=== PATIENT | male | born 1955 | race Caucasian/White ===

== ENCOUNTER → 2022-07-12 | Outpatient (CLI) | payer MEDICARE, OTHER, SELFPAY ==
[2022-07-12 13:21] LABS: Protein, Urine (Random) 25.1 mg/dL (<11.9); Protein:Creat Ratio 167 mg/g CRE (0-200)
[2022-07-12 13:26] LABS: Albumin, Serum 3.9 g/dL (3.2-5.0); BUN 24 mg/dL (7-18); BUN/Creat Ratio 16.8 RATIO (10-20); Calcium,Total 9.2 mg/dL (8.5-10.1); Chloride 107 mmol/L (98-107); Creatinine, Serum 1.43 mg/dL (0.70-1.30); EST Glomerular Filtration Rate 53 mL/min (>60); Est Glom Filt Rate - Afr Amer 64 mL/min (>60); Glucose 79 mg/dL (74-106); Phosphorus 2.7 mg/dL (2.5-4.9); Potassium 4.4 mmol/L (3.5-5.1); Sodium Level 140 mmol/L (136-145)
== END | disposition home or self-care (01) ==
PROVIDERS: PCP Family Medicine; Visit Provider Internal Medicine Nephrology
DX: N18.32 Chronic kidney disease, stage 3b (principal)
CPT/HCPCS: 36415; 80069; 82570; 84156

== ENCOUNTER → 2023-01-31 | Outpatient (CLI) | payer MEDICARE, OTHER, SELFPAY ==
[2023-01-31 10:43] LABS: Protein, Urine (Random) 18.6 mg/dL (<11.9); Protein:Creat Ratio 137 mg/g CRE (0-200)
[2023-01-31 11:01] LABS: Albumin, Serum 3.7 g/dL (3.2-5.0); BUN 20 mg/dL (7-18); BUN/Creat Ratio 13.8 RATIO (10-20); Calcium,Total 8.9 mg/dL (8.5-10.1); Chloride 108 mmol/L (98-107); Creatinine, Serum 1.45 mg/dL (0.70-1.30); EST Glomerular Filtration Rate 52 mL/min (>60); Est Glom Filt Rate - Afr Amer 63 mL/min (>60); Glucose 89 mg/dL (74-106); Phosphorus 2.5 mg/dL (2.5-4.9); Potassium 4.1 mmol/L (3.5-5.1); Sodium Level 139 mmol/L (136-145)
== END | disposition home or self-care (01) ==
LOC: LAB 09:35
PROVIDERS: PCP Family Medicine; Referring Provider Internal Medicine Nephrology; Visit Provider Internal Medicine Nephrology
DX: N18.32 Chronic kidney disease, stage 3b (principal)
CPT/HCPCS: 36415; 80069; 82570; 84156

== ENCOUNTER → 2023-04-09 | Outpatient (CLI) | payer MEDICARE, OTHER, SELFPAY ==
[2023-04-09 15:56] LABS: Absolute Lymphocyte Count 1.84 X10^3/uL (0.83-4.51); Absolute Neutrophil Count 4.5 X10^3/uL (2.0-7.7); Basophil# 0.04 X10^3/uL; Basophil% 0.5 % (0-1); Eosinophil# 0.27 X10^3/uL; Eosinophils% 3.7 % (0-5); Lymphocyte # 1.84 X10^3/ul (0.83-4.51); Lymphocyte % 25.1 % (19-41); Mean Corp Hgb Conc 31.8 g/dL (32-36); Mean Corpuscular Hgb 29.3 pg (27.0-32.0); Mean Corpuscular Volume 92.1 fL (80-94); Mean Platelet Vol. 10.3 fl (6.2-12.0); Monocyte# 0.62 X10^3/uL; Monocyte% 8.5 % (0-10); NRBC Flagged by Analyzer 0 % (0-5); Neutrophil # 4.53 X10^3/uL (2.7-7.7); Neutrophil % 61.9 % (47-70); Platelet Count 184 K/mm3 (150-450); RBC Distribution Width CV 13.2 % (11.6-14.6); RBC Distribution Width SD 44.9 fl (35.1-43.9); Red Blood Count 4.78 M/mm3 (4.6-6.2); White Blood Count 7.3 K/mm3 (4.4-11.0)
[2023-04-09 16:15] LABS: ALB/GLOB Ratio 1.1 RATIO (0.9-2.4); AST(SGOT) 21 U/L (15-37); Alanine Aminotransfer ALT/SGPT 21 U/L (16-61); Albumin, Serum 3.7 g/dL (3.2-5.0); Alkaline Phosphatase 82 U/L (45-117); Anion Gap 4 (5-15); BUN 24 mg/dL (7-18); BUN/Creat Ratio 17.3 RATIO (10-20); Calcium,Total 8.8 mg/dL (8.5-10.1); Chloride 109 mmol/L (98-107); Creatinine, Serum 1.39 mg/dL (0.70-1.30); EST Glomerular Filtration Rate 54 mL/min (>60); Est Glom Filt Rate - Afr Amer 66 mL/min (>60); Globulin 3.4 g/dL (2.2-4.2); Glucose 88 mg/dL (74-106); Potassium 4.2 mmol/L (3.5-5.1); Protein, Total 7.1 g/dL (6.4-8.2); Sodium Level 140 mmol/L (136-145); Thyroid Stim Hormone (TSH) 2.01 uIU/mL (0.358-3.74)
--- OUTSIDE RECORDS SUMMARY | 2023-04-09 16:39 | XMS RPT_ITS | CCD ---
Author Name Unknown Address [address] [place] [address] Organization [facility] Care Team Providers Care Entry Clerk Name Role Phone Luna Dominguez Unavailable Unavailable Unavailable Unavailable Luna Dominguez Primary Care Provider [phone] Unavailable Primary Care Provider Unavailmike e LUNA DOMINGUEZ Primary Care Unavailable CARON CURRAN Referring Unavailab CARON Richardson Admitting Unavailab Luna Avery Primary Care Provider LUNA DOMINGUEZ Primary Care Unavailable CARON CURRAN Admitting Unavailab CARON Richardson Attending Luna Aguilar MD Primary Care Provider CARON CURRAN Attending LUNA Aguilar Primary Care Unavailable DAVINA WILSON Attending Unavailable LUNA BUCHANAN Primary Care Unavailable DAVINA WILSON Admitting Unavailable DAVINA WILSON Referring Unavailable LUNA BUCHANAN Primary Care Unavailable Luna Buchanan Unavailable Dr. Luna Buchanan Primary Care UnavailDr. Luna Rogers Attending Clarka thomas Buchanan, Dr. Luna Chandra Referring Unavaila ble Medications Current Medications Medication Drug Class(es) Dates Sig (Normalized) Sig (Original) acetaminophen 325 mg / HYDROcodone bitartrate 5 mg oral tablet (2 sources) Opioid Agonist Start: 03-04-2020 End: 03-06-2020 take 1 tablet by mouth every four hours as needed HYDROcodone-aceta minophen (NORCO) 5-325 mg per tablet Indications: Trigger finger, left middle finger , Trigger little finger of right hand Take 1 (one) tablet by mouth every 4 (four) hours as needed . 8 tablet 0 03/04/2020 03/06/2020 Active Completed/Discontinued Medications Medication Drug Class(es) Dates Sig (Normalized) Sig (Original) calcium chloride 0.0014 meq/ml / potassium chloride 0.004 meq/ml / sodium chloride 0.103 meq/ml / sodium lactate 0.028 meq/ml injectable solution (2 sources) Start: 03-04-2020 End: 03-04-2020 take 100 mL intravenous route every hour 100 mL/hr, Intravenous, Continuous, Starting 03/04/20 at 1345, PACU (only) Problems Active Problems Problem Classification Problem Date Documented Date Episodic/Chronic Gout and other crystal arthropathies (1 source) Chondrocalcinosis of joint of left knee; Translations: [Other chondrocalcinosis, left knee] Chronic Osteoarthritis (1 source) Osteoarthritis of left knee joint; Translations: [Unilateral primary osteoarthritis, left knee] Chronic Other connective tissue disease (6 sources) Bilateral trigger fingers; Translations: [Trigger finger of both hands] Onset: 04-27-2016 04-27-2016 Other connective tissue disease (6 sources) Trigger finger of right hand; Translations: [Trigger finger of right hand, unspecified finger] Onset: 01-08-2020 01-08-2020 Other nervous system disorders (11 sources) Carpal tunnel syndrome, right upper limb; Translations: [Carpal tunnel syndrome, left upper limb] Onset: 04-27-2016 04-27-2016 Chronic Other nervous system disorders (3 sources) Carpal tunnel syndrome, left upper limb; Translations: [Carpal tunnel syndrome of left wrist] Onset: 04-27-2016 04-27-2016 Chronic Other screening for suspected conditions (not mental disorders or infectious disease) (2 sources) Abnormal results of kidney function studies; Translations: [Abnormal results of kidney function studies] Onset: 06-18-2022 Episodic Unclassified (6 sources) Carpal tunnel syndrome, right; Translations: [Carpal tunnel syndrome, right] Onset: 04-27-2016 04-27-2016 Unclassified (6 sources) Carpal tunnel syndrome, left; Translations: [Carpal tunnel syndrome, left] Onset: 04-27-2016 04-27-2016 Past or Other Problems Problem Classification Problem Date Documented Da te Episodic/Chronic Other connective tissue disease (8 sources) Trigger finger, unspecified finger; Translations: [Triggering of digit] Onset: 04-27-2016 04-27-2016 Episodic Other connective tissue disease (14 sources) Triggering of digit; Translations: [Trigger finger, left middle finger] Onset: 04-27-2016 12-18-2017 Episodic Other connective tissue disease (1 source) Trigger finger of right hand; Translations: [Trigger finger, unspecified finger] Onset: 01-08-2020 01-08-2020 Episodic Results Test Name Value Interpretation Reference Range Facil it Vital Signs Date Time Vital Sign Value Performing Clinician Facility 11-29-2020 08:55-0400 Body height 182.9 cm Davina Wilson [employer] Work Phone: [facility] 11-29-2020 08:55-0400 Body mass index (BMI) [Ratio] 27.94 kg/m2 Davina Wilson [employer] Work Phone: [facility] 11-29-2020 08:55-0400 Body weight 93.44 kg Davina Wilson [employer] Work Phone: [facility] 03-17-2020 08:43-0500 BMI (Body Mass Index) 27.4 kg/m2 Caron Curran [facility] 03-17-2020 08:43-0500 Body weight 91.63 kg Caron [facility] 03-17-2020 08:43-0500 Height 182.9 cm Caron Magdy [facility] 03-04-2020 13:12-0500 Body Temperature 97.81 [degF] Caron Curran [facility] 03-04-2020 13:12-0500 BP Diastolic 82 mm[Hg] Caronlora Curran [facility] 03-04-2020 13:12-0500 BP Systolic 123 mm[Hg] Caronlora Curran [facility] 03-04-2020 13:12-0500 Pulse (Heart Rate) 50 /min Caronlora Curran [facility] 03-04-2020 13:12-0500 Pulse Oximetry 99 % Caron Magdy [facility] 03-04-2020 13:12-0500 Respiratory Rate 16 /min Caronlora Curran [facility] 03-04-2020 08:50-0500 BMI (Body Mass Index) 27.48 kg/m2 Caron Curran [facility] 03-04-2020 08:50-0500 Body weight 91.9 kg Caronlora Curran [facility] 03-04-2020 08:50-0500 Height 182.9 cm Caronlora Curran [facility] 12-08-2018 15:15-0400 BMI (Body Mass Index) 28.48 kg/m2 Caron Curran [facility] 12-08-2018 15:15-0400 Body weight 95.25 kg Caronlora Curran [facility] 04-15-2017 14:52-0500 BMI (Body Mass Index) 28.48 kg/m2 Caron Curran [facility] Work Phone: 04-15-2017 14:52-0500 Height 182.9 cm Caron Curran [facility] Work Phone: 04-15-2017 14:52-0500 Weight 95.25 kg Caronlora Curran [facility] Work Phone: 12-10-2016 07:53-0400 BMI (Body Mass Index) 28.48 kg/m2 Caron Curran [facility] Work Phone: 12-10-2016 07:53-0400 Height 182.9 cm Caron Curran [facility] Work Phone: 12-10-2016 07:53-0400 Weight 95.25 kg Caron Curran [facility] Work Phone: 11-05-2016 15:23-0400 BMI (Body Mass Index) 28.48 kg/m2 Caron Curran [facility] Work Phone: 11-05-2016 15:23-0400 Height 182.9 cm Caron Curran [facility] Work Phone: 11-05-2016 15:23-0400 Weight 95.25 kg Caron Curran [facility] Work Phone: Encounters Encounter Date Encounter Type Care Provider Facility Start: 06-18-[address] Luna Buchanan Facility:[id number] Start: 04-25-2021 COLON, Provider: Yonatan Rust, Status: Pen, Time: 9:30 AM Luna Buchanan Work Phone: [facility] Work Phone: Start: 04-24-2021 Chart Update Luna noriega Work Phone: [facility] Work Phone: Start: 02-02-2021 Telephone encounter Luna Reyes Malcolm garcia Work Phone: [facility] Work Phone: Start: 11-29-2020 End: 12-03-2020 ambulatory DAVINA WILSON [facility] Start: 11-29-2020 End: 11-29-2020 Office outpatient visit 25 minutes Davina Wilson [employer] Work Phone: [facility] Procedures Date Procedure Procedure Detail Performing Clinician Start: 11-29-2020 Arthrocentesis aspir &/inj major jt/bursa w/o us Davina Wilson [employer] Work Phone: Plan of Treatment Date Care Activity Detail Author Start: 04-25-2021 COLON, Provider: Yonatan Rust, Status: Pen, Time: 9:30 AM COLON, Provider: Yonatan Rust, Status: Pen, Time: 9:30 AM [facility] Work Phone: Start: 11-30-2020 Influenza vaccination Sequential Influenza Vaccine (#1) [facility] Start: 12-01-2019 Influenza vaccination given [facility] Start: 11-30-2018 Influenza vaccination given SEQUENTIAL INFLUENZA VACCINE (#1) [facility] Start: 11-30-2017 Influenza vaccination given SEQUENTIAL INFLUENZA VACCINE (#1) [facility] Start: 2017 Zoster vacc, sc ZOSTER VACCINE [facility] Work Phone: Start: 12-10-2016 Ambulatory 12/10/2016 Office Visit Sports Medicine Caron Curran MD [address] [place], [place] [id number] [phone] [facility] Start: 11-30-2016 Influenza vaccination SEQUENTIAL INFLUENZA VACCINE (#1) [facility] Work Phone: Start: 11-30-2016 SEQUENTIAL INFLUENZA VACCINE (#1) SEQUENTIAL INFLUENZA VACCINE (#1) [facility] Work Phone: Start: 2007 Administration of herpes zoster vaccine ZOSTER VACCINES (1 of 2) [facility] Start: 2007 Screening for malignant neoplasm of colon [facility] Start: 1975 Hepatitis C antibody, confirmatory test Hepatitis C Screening [facility] Start: 1975 Hepatitis C screening Hepatitis C Screening [facility] Start: 1973 COVID-19 Vaccine (1 of 2) COVID-19 Vaccine (1 of 2) [facility] Start: 1972 HIV screening HIV Screening [facility] Start: 1969 Adolescent depression screening assessment Depression Screening (PHQ9) [facility] Start: 1969 Depression screening using PHQ-9 (Patient Health Questionnaire 9) score Depression Screening (PHQ9) [facility] Start: 1960 History and physical examination, annual for health maintenance Wellness Visit [facility] Start: 1957 Colonoscopy COLONOSCOPY [facility] Work Phone: Start: 1957 Colonoscopy COLONOSCOPY [facility] Work Phone: Start: 1957 Depression screening using PHQ-9 (Patient Health Questionnaire 9) score Depression Screening (PHQ9) [facility] Start: 1957 Hepatitis C antibody, confirmatory test HEPATITIS C SCREENING [facility] Start: 1957 HEPATITIS C SCREENING HEPATITIS C SCREENING [facility] Work Phone: Start: 1957 Prostate specific antigen measurement PSA Level [facility] Start: 1957 Protein mass conc COLONOSCOPY [facility] Start: 1957 Screening colonoscopy COLONOSCOPY [facility] Work Phone: Start: 1957 Screening for malignant neoplasm of colon Colorectal Cancer Screening: Colonoscopy [facility] Start: 1957 TETANUS EVERY 10 YR TETANUS EVERY 10 YR [facility] Work Phone: Start: 1957 Tetanus vaccination [facility] Payers Date Payer Category Payer Unknown [id number] 2015 Unknown [id number] 2. [id number] 1957 Unknown [id number] [id number]. [id number] 1957 Unknown [id number] [id number]. [id number] 1957 Unknown [id number] 2.16. [id number] 1957 Unknown [id number] 2.16. [id number] 1957 Unknown [id number] Medicare [id number] Unknown Self Pay Social History Date Type Detail Facility Start: 03-19-2016 End: 07-15-2017 Tobacco smoking status [facility] Never smoker [facility] Work Phone: Start: 1955 Sex Assigned At Not on file O [facility] Work Phone: Start: 12-08-2018 End: 11-30-2020 Alcohol intake Current drinker of alcohol (finding) [facility] Exposure to SARS-CoV -2 (event) Not sure [facility] Start: 03-19-2016 End: 03-04-2020 Tobacco use and exposure Never used [facility] Start: 11-30-2020 Alcohol intake [facility] History of Present illness Narrative 11-29-2020 Davina Wilson CNP - 11/29/2020 4:47 PM EDTCkaruna Wilson CNP - 11/29/2020 4:47 PM EDT Note Date & Type Note Facility 11-29-2020 History of Presen t illness Narrative Associated Order(s): LG Jt Injection/Arthrocentesis: L knee Post-Procedure Diagnose(s): Chondrocalcinosis of left knee; Primary osteoarthritis of left knee LG Jt Injection/Arthrocentesis: L knee Performed by: Davina Wilson CNP Authorized by: Davina Wilson CNP CPT 42456 - Large Joint Arthrocentesis: Consent given by: Patient Time out: Immediately prior to the procedure a time out was called Physician or proceduralist has discussed critical or nonroutine steps, procedure duration and anticipated blood loss: Yes Supporting Documentation: Indications: Pain and diagnostic evaluation Procedure Details: Location: Knee Site: L knee Prep: patient was prepped and draped in usual sterile fashion Needle size: 22 G Approach: Anterolateral Medications: 40 mg triamcinolone acetonide 40 mg/mL Anesthetic used: Lidocaine 1% Anesthetic amount (mL): 2 Patient tolerance: Patient tolerated the procedure well with no immediate complications Skyler Chanel 1955 CC: 65 y.o. is a he with left knee pain. Chief Complaint Patient presents with Left Knee - Pain . HPI: Knee Pain: Patient presents to the office with left knee pain. The pain started about a month ago without any known injury. The pain has continued even with taking ibuprofen which only seems to take the edge off. He does report that the knee feels as though it could give out on him but it hasn't . He denies any swelling in the knee, pain located all throughout the knee. He is very active and this is starting to inhibit his activity level. He has never had any injection nor any type of physical therapy for the knee. He did have a torn hamstring years ago and doesn't know if that has anything to do with the pain. PMH: No Known Allergies No current outpatient medications on file. History reviewed. No pertinent past medical history. Past Surgical History: Procedure Laterality Date ORTHOPEDIC SURGERY carpal tunnel b/l SHOULDER SURGERY TRIGGER FINGER RELEASE Bilateral 03/04/2020 Procedure: Bilateral hand trigger finger release 2nd, 3rd and 5th fingers on left hand 2nd, 4th and 5th right hand; Surgeon: Caron Curran MD; Location: Main OR; Service: Orthopedic Social History Socioeconomic History Marital status: Spouse name: Not on file Number of children: Not on file Years of education: Not on file Highest education level: Not on file Occupational History Not on file Tobacco Use Smoking status: Never Smoker Smokeless tobacco: Never Used Vaping Use Vaping Use: Never used Substance and Sexual Activity Alcohol use: Yes Alcohol/week: 1.0 standard drink Types: 1 Cans of beer per week Drug use: Never Sexual activity: Not on file Other Topics Concern Not on file Social History Narrative Not on file Social Determinants of Health Financial Resource Strain: Difficulty of Paying Living Expenses: Not on file Food Insecurity: Worried About Running Out of Food in the Last Year: Not on file Ran Out of Food in the Last Year: Not on file Transportation Needs: Lack of Transportation (Medical): Not on file Lack of Transportation (Non-Medical): Not on file Physical Activity: Days of Exercise per Week: Not on file Minutes of Exercise per Session: Not on file Stress: Feeling of Stress : Not on file Social Connections: Frequency of Communication with Friends and Family: Not on file Frequency of Social Gatherings with Friends and Family: Not on file Attends Confucianism Services: Not on file Active Member of Clubs or Organizations: Not on file Attends Club or Organization Meetings: Not on file Marital Status: Not on file Housing Stability: Unable to Pay for Housing in the Last Year: Not on file Number of Places Lived in the Last Year: Not on file Unstable Housing in the Last Year: Not on file The patient's past medical history, surgical history, social history, family history, medications and allergies were reviewed with the patient today and are available in the chart for further review. ROS: Review of Systems Constitutional: Negative for activity change and fatigue. HENT: Negative for congestion, hearing loss and trouble swallowing. Eyes: Negative for visual disturbance. Respiratory: Negative for chest tightness and shortness of breath. Cardiovascular: Negative for chest pain and palpitations. Gastrointestinal: Negative for abdominal pain, diarrhea, nausea and vomiting. Endocrine: Negative for polydipsia, polyphagia and polyuria. Genitourinary: Negative for decreased urine volume, difficulty urinating and hematuria. Musculoskeletal: Positive for arthralgias. Negative for joint swelling and myalgias. Skin: Negative for color change, rash and wound. Allergic/Immunologic: Negative for immunocompromised state. Neurological: Negative for dizziness, weakness, light-headedness and numbness. Hematological: Does not bruise/bleed easily. Psychiatric/Behavioral: Negative for confusion and sleep disturbance. The patient is not nervous/anxious. PE: Physical Exam Constitutional: Appearance: He is well-developed. HENT: Head: Normocephalic. Eyes: Pupils: Pupils are equal, round, and reactive to light. Cardiovascular: Rate and Rhythm: Normal rate and regular rhythm. Pulmonary: Effort: Pulmonary effort is normal. Breath sounds: Normal breath sounds. Abdominal: General: Bowel sounds are normal. Palpations: Abdomen is soft. Musculoskeletal: General: Tenderness present. Normal range of motion. Cervical back: Normal range of motion and neck supple. Left knee: No effusion. Instability Tests: Medial Samantha test negative and lateral Samantha test negative. Skin: General: Skin is warm and dry. Neurological: Mental Status: He is alert and oriented to person, place, and time. ORTHO: Left Knee Exam Tenderness The patient is experiencing tenderness in the lateral joint line. Range of Motion The patient has normal left knee ROM. Tests Samantha: Medial - negative Lateral - negative Varus: negative Valgus: negative Ronna: Anterior - negative Drawer: Anterior - negative Posterior - negative Other Erythema: absent Sensation: normal Pulse: present Swelling: mild Effusion: no effusion present Imaging: L Knee Degenerative changes without acute osseous abnormality Assessment/Plan: After exam and reviewing of the patient x-ray images, I offered him a cortisone injection which he gladly accepted. I did this without complications and he tolerated this well. IF there is no improvement after 2 weeks, I will start him in outpatient physical therapy. Otherwise I will see him as needed. Diagnosis: Problem List Items Addressed This Visit None Follow Up: No follow-ups on file. Davina Wilson CNP documented in this encounter [facility] Evaluation note Note Date & Type Note Facility documented in this encounter [facility] Assessments Diagnosis Bilateral hand pain - Primar y Trigger finger of right hand , unspecified finger Diagnosis Tear of left hamstring, subs equent encounter - Primary Diagnosis Left leg pain - Primary Pain in soft tissues of limb Tear of left hamstring, init ial encounter Diagnosis Tear of left hamstring, subs equent encounter - Primary Diagnosis Trigger finger of right hand, unspecified finger- Primary Trigger finger, left middle finger Trigger finger of both hands Diagnosis Trigger finger of both hands - Primary Carpal tunnel syndrome, righ t Carpal tunnel syndrome Carpal tunnel syndrome, left Diagnosis Trigger finger of both hands- Primary Diagnosis Trigger finger of right hand, unspecified finger Trigger finger, left middle finger Diagnosis Trigger finger, left middle finger- Primary Trigger little finger of right hand Trigger finger of right hand Diagnosis Trigger finger of right hand, unspecified finger- Primary Trigger finger, left middle finger History of Present Illness * Caron Curran MD - 04/28/2018 6:02 PM EST Dictation on: 04/28/2018 6:03 PM by: CARON CURRAN [[email or web address]] in this encounter* Caron Curran MD - 04/28/2018 6:02 PM EST Dictation on: 04/28/2018 6:03 PM by: CARON CURRAN [[email or web address]] in this encounter* Caron Curran MD - 11/05/2016 5:54 PM EDT Skyler Derr comes in today for evaluation of both hands. This gentleman I have done previous carpal tunnel release and previous trigger finger says now his right thumb and his left 3rd finger are sticking. Today, he is awake, alert and oriented x3. Has tenderness on the right thumb A1 mariam with triggering. He has tenderness over the left 3rd finger A1 mariam with triggering. His left 4th finger woundis healed. His carpal tunnel wounds bilaterally are healed. IMPRESSION 1.Right thumb trigger digit. 2.Left 3rd finger trigger digit. PLAN Today, under sterile conditions with patient's consent, we injected 20 mg of Kenalog and 2.5 mL of 1% lidocaine without epinephrine into the left 3rd finger and the right thumb A1 mariam. Patient tolerated both procedures well. If these measures fail, we will consider surgical intervention. in this encounter* Caron Curran MD - 12/08/2018 3:35 PM ELE Charles is here for followup of his left and right hand trigger fingers. He has had previous trigger finger releases. He just wants shots today. Today, he is awake, alert, and oriented x3. He ambulates without assistive device. On his left hand, he has tenderness the left 2nd and 3rd finger A1 mariam with obvious triggering. On the right hand, he has tenderness and triggering on the right hand 1st, 4th, and 5th A1 pulleys. IMPRESSION 1.Left hand 2nd and 3rd finger trigger digit. 2.Right hand 1st, 4th, and 5th trigger digit. PLAN At this point in time, he wants to go ahead and get all trigger digits injected today. I have informed him of the risks and complications of cortisone. He understands that, he has had them before. Hesaid he does not want to make another appointment. He is contemplating surgery in the wintertime. Under sterile conditions with patient's consent, we injected 20 mg of Kenalog 2.5 cc of 1% lidocaine without epinephrine to the left 2nd and 3rd finger A1 mariam and the right 1st, 4th, and 5th finger A1 mariam. Patient tolerated all 5 injections well. I will see him back on a p.r.n. basis. documented in this encounter* Caron Curran MD - 09/04/2019 4:12 PM EDT Dictation on: 09/04/2019 4:13 PM by: CARON CURRAN [[email or web address]] documented in this encounter* Caron Curran MD - 03/17/2020 4:31 PM EST Dictation on: 03/17/2020 4:31 PM by: CARON CURRAN [[email or web address]] documented in this encounter Advance Directives No Advanced Directives Records FoundDocuments on File Type Date Recorded Patient Housing Quality Standard Inspector Expl anation Advance Directives and Living Will Documents on File Type Date Recorded Patient Housing Quality Standard Inspector Expl anation Advance Directives and Livin g Will 03/04/2020 8:25 AM Documents on File Type Date Recorded Patient Housing Quality Standard Inspector Expl anation Advance Directives and Livin g Will 03/04/2020 8:25 AM Summary Purpose Family History No Family History Records FoundNo Family History Records FoundNo Family History Records FoundNo Family History Records FoundNo Family History Records Found Discharge Instructions * Instructions* Irma Garland RN - 03/04/2020 Trigger Finger Release: What to Expect at Home Your Recovery Your finger and hand may be sore and swollen for several days. It may be hard to move your finger at first. This usually gets better after several weeks. You may feel numbness or tingling near the cut, called an incision, that the doctor made. This feeling will probably get better in a few days, but it may take several months to completely go away. Your doctor will take out your stitches 1 to 2 weeks after surgery. It will probably take about 6 weeks for your finger to heal completely. Once healed, your finger may move easily without pain. How soon you can return to work depends on your job. If you can do your job without using the hand,you may be able to go back 1 or 2 days after surgery. But if your job requires you to do repeated finger movements, put pressure on your hand, or lift things, you may need to take up to 6 weeks off work. Your doctor can help you decide how much time you will need to take off work. This care sheet gives you a general idea about how long it will take for you to recover. But each person recovers at a different pace. Follow the steps below to get better as quickly as possible. How can you care for yourself at home? Activity Rest when you feel tired. Getting enough sleep will help you recover. Try to walk each day. Start by walking a little more than you did the day before. Bit by bit, increase the amount you walk. For 1 to 2 weeks after surgery, avoid using your hand. This includes lifting things heavier than 1 to 2 pounds or doing repeated finger or hand movements, such as typing, using a computer mouse, washing windows, vacuuming, or chopping food. Do not use power tools, and avoid other activities that make your hand vibrate. Ask your doctor when you can drive again. You may be able to go back to work 1 or 2 days after surgery. It depends on the type of work you doand how you feel. You may shower, but do not get your hand wet until your doctor says it is okay. Keep the bandage dry by covering it with plastic. Do not take a bath, swim, use a hot tub, or soak your hand until yourdoctor says it is okay. Diet You can eat your normal diet. If your stomach is upset, try bland, low-fat foods like plain rice, broiled chicken, toast, and yogurt. Medicines Your doctor will tell you if and when you can restart your medicines. He or she will also give you instructions about taking any new medicines. If you take aspirin or some other blood thinner, ask your doctor if and when to start taking it again. Make sure that you understand exactly what your doctor wants you to do. Take pain medicines exactly as directed. ? If the doctor gave you a prescription medicine for pain, take it as prescribed. ? If you are not taking a prescription pain medicine, ask your doctor if you can take an yvjs-azv-npyvoxa medicine. If you think your pain medicine is making you sick to your stomach: ? Take your medicine after meals (unless your doctor has told you not to). ? Ask your doctor for a different pain medicine. If your doctor prescribed antibiotics, take them as directed. Do not stop taking them just because you feel better. You need to take the full course of antibiotics. Incision care Leave the bandage on your hand until the doctor says it is okay to remove it. This is usually 2 or 3 days after surgery. After the doctor says you can take off your bandage, wash the area daily with warm, soapy water andpat it dry. Don't use hydrogen peroxide or alcohol, which can slow healing. You may cover the area with a gauze bandage if it weeps or rubs against clothing. Change the bandage every day. Keep the area clean and dry. Exercise Gently bend and straighten your fingers throughout the day to keep them flexible and help reduce swelling. You may need finger and hand therapy. This helps you regain range of motion, strength, and supervisor fabrication and assembly in your finger and hand. To get the best results, you need to do the exercises correctly and as often and as long as your doctor or your physical or occupational therapist tells you to. Ice and elevation Put ice or a cold pack on your hand and wrist for 10 to 20 minutes at a time. Try to do this every 1 to 2 hours for the next 3 days (when you are awake) or until the swelling goes down. Put a thin cloth between the ice and your skin. Prop up your hand on a pillow anytime you sit or lie down during the first 2 or 3 days after surgery. Try to keep the hand above the level of your heart. This will help reduce swelling. Follow-up care is a padron part of your treatment and safety. Be sure to make and go to all appointments, and call your doctor if you are having problems. It's also a good idea to know your test resultsand keep a list of the medicines you take. When should you call for help? Call 911 anytime you think you may need emergency care. For example, call if: You passed out (lost consciousness). You have severe trouble breathing. You have sudden chest pain and shortness of breath, or you cough up blood. Call your doctor now or seek immediate medical care if: You have pain that does not get better after you take pain medicine. You have loose stitches, or your incision comes open. Your incision bleeds through a large bandage. You have signs of infection, such as: ? Increased pain, swelling, warmth, or redness. ? Red streaks leading from the incision. ? Pus draining from the incision. ? Swollen lymph nodes in your neck, armpits, or groin. ? A fever. Your hand or fingers are cool or pale or change color. You have tingling or numbness in your hand or fingers. You cannot move your fingers. Watch closely for any changes in your health, and be sure to contact your doctor if: You are not getting better as expected. Where can you learn more? Log into your personal health record on [email or web address].[email or web address] and enter F681 in the Education box to learn more about Trigger Finger Release: What to Expect at Home. Current as of: June 01, 2019 Content Version: 12.6 [employer]. Care instructions adapted under license by your healthcare professional. If you have questions about a medical condition or this instruction, always ask your healthcare professional. [employer] disclaims any warranty or liability for your use of this information. GENERAL POST-OPERATIVE PATIENT INSTRUCTIONS ANESTHESIA PRECAUTIONS: A responsible adult must stay with you for at least 24 hours after surgery. You may feel light headed,, dizzy, or nauseated during this time. Do not operate a vehicle (car, bike, motorcycle, technology assistant) machinery or power tools. Do not make any important decisions or drink any alcoholic beverages for 24 hours. Children should remain quiet today. No riding of bicycles, motorcycles, skateboards, playing on swings etc. Drink plenty of fluids today. Eat light, small, frequent meals today. Resume regular diet tomorrow. FOLLOW-UP: Please make an appointment with your physician for follow-up. Call your physician immediately if you have any fevers greater than 101, drainage from your wound that is not clear or looks infected, persistent bleeding, increasing abdominal pain, problems urinating, or persistent nausea/vomiting. DIET: You may eat any foods that you can tolerate. It is a good idea to eat a high fiber diet and take in plenty of fluids to prevent constipation. If you do become constipated you may want to take amild laxative or take ducolax tablets on a daily basis until your bowel habits are regular. Constipation can be very uncomfortable, along with straining, after recent surgery. ACTIVITY: You are encouraged to cough and deep breathe or use your incentive spirometer if you weregiven one, every 15-30 minutes when awake. This will help prevent respiratory complications and lowgrade fevers post-operatively if you had a general anesthetic. You are encouraged to walk and engage in light activity for the next two weeks. MEDICATIONS: Try to take narcotic medications and anti-inflammatory medications, such as ibuprofen,naprosyn, etc., with food. This will minimize stomach upset from the medication. Should you developnausea and vomiting from the pain medication, or develop a rash, please discontinue the medication and contact your physician. You should not drive, make important decisions, or operate machinery when taking narcotic pain medication. Do not take tylenol or tylenol products with narcotic medications. QUESTIONS: Please feel free to call your physician or the hospital telephone operator if you have any questions, and they will be glad to assist you.Prescriptions given to patient along with copy of discharge instructions.Discharge instructions reviewed with patient and family/friend, all questions answered,verbalized understanding.Including but not limited to signs and symptoms of infection; fever over 100, redness at the incision site, foul smelling drainage around the incisional site, and increased, unrelenting Pain. Call 911 instructions also reviewed and highlighted on instruction sheet. Patient states that they have the means to obtain supplies to care for self at home. documented in this encounter Additional Source Comments Reason for Visit (unrecogniz ed section and content) Reason Comments Follow-up Pain Reason Comments Pain Follow-up Status Reason Specialty Diagnoses / Procedures Referre d By Contact Referred To Contact Diagnoses Trigger finger of right hand, unspecified finger Trigger finger, left middle finger Trigger finger of right hand, unspecified finger [M65.30] Trigger finger, left middle finger [M65.332] Procedures ID INCISE FINGER TENDON SHEATH Caron Curran MD [address] [place] [id number] Reason Comments Post-op Follow-up Reason Comments Pain (unrecognized sect ion and content) No Status Records FoundNo Status Records FoundNo Status Records FoundNo Status Records FoundNo Status Records Found INFORMATION SOURCE (unrecogn ized section and content) DATE CREATED AUTHOR AUTHOR'S ORGANIZ ATION 03/13/2020 [facility] DATE CREATED AUTHOR AUTHOR'S ORGANIZ ATION 12/04/2020 [facility] DATE CREATED AUTHOR AUTHOR'S ORGANIZ ATION 04/23/2021 [facility] DATE CREATED AUTHOR AUTHOR'S ORGANIZ ATION 06/24/2022 [facility] Caron Curran MD - 03/04/2020 10:02 AM EST H&P Notes (unrecognized sect ion and content) Dictation on: 03/04/2020 10:08 AM by: CARON CURRAN [[id number]] documented in this encounter Brief Op Note - Caron Curran MD - 03/04/2020 12:07 PM ESTOp Note - Caron Curran MD - 03/04/2020 11:30 AM EST Miscellaneous Notes (unrecog nized section and content) Brief Post Operative Note Patient Name: Skyler Chanel : 1955 (64 y.o.) Date of Service: 03/04/2020 CSN: [id number] Procedure(s): Bilateral hand trigger finger release 2nd, 3rd and 5th fingers on left hand 2nd, 4th and 5th right hand Pre-Operative Diagnoses: * Trigger finger of right hand, unspecified finger [M65.30] Trigger finger, left middle finger [M65.332] Post-Operative Diagnoses: * Same as Pre-Op Diagnosis * Trigger finger of right hand, unspecified finger [M65.30] * Trigger finger, left middle finger [M65.332] Surgeon(s) and Role: * Caron Curran MD - Primary Anesthesiologist: Luna Barber MD; Emiliano Pop MD FIRE HYDRANT MECHANIC: Joanna Davis CRNA; Diann Rodriguez CRNA Fleecer: Alanis Cruz RN; Molly Farrell RN Scrub Person: ST Guido Operative findings: see op note Intra and immediate post-operative complications: none Type of anesthesia used: Monitor Anesthesia Care Estimated blood loss: 2 mL Estimated urine output: Refer to surgical log Specimen(s): * No specimens in log * Implant(s): * No implants in log * Drain(s): * No LDAs found * Wound(s): Wound 03/04/20 Surgical Wound Hand (Active) Caron Curran MD 03/04/2020 12:07 PM Dictation on: 03/04/2020 12:10 PM by: CARON CURRAN [[id number]] documented in this encounter Care Teams (unrecognized sec tion and content) FOR RECORDS PERTAINING TO PATIENTS WHO ARE OR HAVE BEEN ENROLLED IN A CHEMICAL DEPENDENCY/SUBSTANCEABUSE PROGRAM, SOME INFORMATION MAY BE OMITTED. This clinical summary was aggregated from multiple sources. Caution should be exercised in using it in the provision of clinical care. This summary normalizes information from multiple sources, and as a consequence, information in this document may materially change the coding, format and clinical context of patient data. In addition, data may be omitted in some cases. CLINICAL DECISIONS SHOULD BE BASED ON THE PRIMARY CLINICAL RECORDS. [employer] provides no warranty or guarantee of the accuracy or completeness of information in this document.
[2023-04-09 16:47] LABS: Hepatitis C Antibody Non-Reactive (Nonreactive); Vitamin D,25 Hydroxy 40.9 ng/mL
== END | disposition home or self-care (01) ==
PROVIDERS: PCP Family Medicine; Visit Provider Family Medicine Geriatric Medicine
DX: Z12.5 Encounter for screening for malignant neoplasm of prostate (principal); Z13.89 Encounter for screening for other disorder; I10 Essential (primary) hypertension; E55.9 Vitamin D deficiency, unspecified
CPT/HCPCS: 36415; 80053; 82306; 84153; 84443; 85025; 86803; G0103

== ENCOUNTER → 2023-04-17 | Outpatient (CLI) | payer MEDICARE, OTHER, SELFPAY ==
--- NOTE | 2023-04-17 07:59 | AAAS_ITS ---
Reason For Study: SCREENING Aorta Measurements Aorta Doppler Measurements Proximal aorta measures2.23 x 2.23cm. in cross- Peak systolic flow velocities within the proximal sectional axis. aorta measure 124.9 cm/sec. Proximal aorta measures2.31cm. in longitudinal Peak systolic flow velocities within the mid aorta axis. measure 85.0 cm/sec. Mid aorta measures2.02 x 1.92cm. in cross- Peak systolic flow velocities within the distal sectional axis. aorta measure 85.0 cm/sec. Mid aorta measures1.93cm. in longitudinal axis. Distal aorta measures2.31 x 2.21cm. in cross- sectional axis. Distal aorta measures1.86cm. in longitudinal axis. Left Iliac Artery Left iliac artery measures 0.96 x 0.81 cm. in the cross-sectional axis. Left iliac artery measures 0.88 cm. in the longitudinal axis. Peak systolic velocity in the left iliac artery measures 74.8 cm/sec. Right Iliac Artery Right iliac artery measures 1.08 x 1.07 cm. in the cross-sectional axis. Right iliac artery measures 1.06 cm. in the longitudinal axis. Peak systolic velocity in the right iliac artery measures 76.8 cm/sec. Procedure Aorta IVC Iliac vasculature or bypass grafts [id number]. Exam performed in department. VL/AAA Screening Interpretation Summary Aorta patent, normal caliber Bilateral iliac arteries patent, normal caliber Ordering Physician: Tuan Camarillo Chi Referring Physician: Tuan Camarillo Chi Performed By: Soledad Cameron, RDCS, RVT
== END | disposition home or self-care (01) ==
LOC: CVS 07:57
PROVIDERS: PCP Family Medicine Geriatric Medicine; Visit Provider Family Medicine Geriatric Medicine
DX: Z13.89 Encounter for screening for other disorder (principal)
CPT/HCPCS: 76706

== ENCOUNTER → 2023-11-05 | Outpatient (CLI) | payer MEDICARE, OTHER, SELFPAY ==
[2023-11-05 16:59] LABS: Hematocrit 43.3 % (40-54); Hemoglobin 13.8 g/dL (13.0-16.5); Mean Corp Hgb Conc 31.9 g/dL (32-36); Mean Corpuscular Hgb 29.2 pg (27.0-32.0); Mean Corpuscular Volume 91.7 fL (80-94); Mean Platelet Vol. 10.4 fl (6.2-12.0); Platelet Count 168 K/mm3 (150-450); RBC Distribution Width CV 13.1 % (11.6-14.6); RBC Distribution Width SD 44.3 fl (35.1-43.9); Red Blood Count 4.72 M/mm3 (4.6-6.2); White Blood Count 7.3 K/mm3 (4.4-11.0)
[2023-11-05 18:04] LABS: Albumin, Serum 3.7 g/dL (3.2-5.0); BUN 24 mg/dL (7-18); BUN/Creat Ratio 15.2 RATIO (10-20); Chloride 107 mmol/L (98-107); Creatinine, Serum 1.58 mg/dL (0.70-1.30); EST Glomerular Filtration Rate 47 mL/min (>60); Est Glom Filt Rate - Afr Amer 57 mL/min (>60); Glucose 84 mg/dL (74-106); Phosphorus 3.8 mg/dL (2.5-4.9); Potassium 4.7 mmol/L (3.5-5.1); Sodium Level 138 mmol/L (136-145)
== END | disposition home or self-care (01) ==
LOC: LAB 16:02 → POLAB3 16:34
PROVIDERS: PCP Family Medicine; Referring Provider Internal Medicine Nephrology; Visit Provider Internal Medicine Nephrology
DX: N18.31 Chronic kidney disease, stage 3a (principal)
CPT/HCPCS: 36415; 80069; 85027

== ENCOUNTER → 2023-12-25 | Outpatient (CLI) | payer MEDICARE, OTHER, SELFPAY ==
--- NOTE | 2023-12-25 15:06 | RAD_ITS ---
STUDY: X-RAY - PELVIS REASON FOR EXAM: Male, 68 years old. Left buttocks pain. TECHNIQUE: One view of the pelvis was obtained. COMPARISON: None. FINDINGS: Normal bowel gas pattern with air seen to the rectum. Moderate amount of feces colon Osteopenia. Mild arthrosis of both sacroiliac joints. Mild arthrosis of the symphysis pubis. Mild arthrosis of both hips. Calcification projected lateral to the right femoral head which may represent a small intra-articular osteochondral body. Vasectomy clips. 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 Probable intra-articular osteochondral bodies in the right hip joint. No acute finding. Electronically Signed: Alin Lui MD at 15:27 EDT ,
== END | disposition home or self-care (01) ==
LOC: RAD 15:03
PROVIDERS: PCP Family Medicine; Referring Provider Anesthesiology; Visit Provider Anesthesiology
DX: M54.50 Low back pain, unspecified (principal)
CPT/HCPCS: 72170

== ENCOUNTER → 2024-04-20 | Outpatient (CLI) | payer MEDICARE, OTHER, SELFPAY ==
[2024-04-20 17:37] LABS: Color, Urine Yellow (Yellow); Glucose, Dipstick Normal (Normal); Ketone-Dipstick Negative (Negative); Leukocyte Esterase-Dipstick Negative /ul (Negative); Nitrite-Dipstick Negative (Negative); Occult Blood-Urine Negative /ul (Negative); Protein-Dipstick 30 mg/dl (Negative); Urine Bilirubin Dipstick Negative (Negative); Urine Clarity Clear (Clear); Urine Urobilinogen Normal (Normal)
== END | disposition home or self-care (01) ==
LOC: LABSPEC 14:45
PROVIDERS: PCP Family Medicine; Visit Provider Family Medicine
DX: N41.0 Acute prostatitis (principal)
CPT/HCPCS: 81002; 87086

== ENCOUNTER 2024-04-30 09:09 | Emergency (ER) | payer MEDICARE, OTHER, SELFPAY ==
[2024-04-30 09:10] VITALS: BP 161/81; PULSE 77; RESP 16; TEMP 36.4; O2SAT 98; BMI 27.8
[2024-04-30 09:38] LABS: Mucous, Urine 0 SEEN /hpf (<or=2+); Red Blood Cells-Urine 0 SEEN /hpf (0-5); White Blood Cells 0 SEEN /hpf (0-5)
--- NOTE | 2024-04-30 09:38 | EX.ED.GUMALE ---
HPI History of Present Illness Chief Complaint: Complaint Informant: patient and spouse/S.O. Pain Onset: Weeks Context: Gradual Onset Timing: Intermittent Current Severity: Mild Maximum Severity: Mild Narrative Narrative: 69-year-old male past medical history of renal sufficiency. On the 12th saw his primary care physician told him he was having trouble urinating. They started him on antibiotics Cipro. Did not make a big difference. Recently was started on Bactrim and Flomax and a CT is able to pee but he has not mild discomfort when he pees. He denies any cloudy or bloody urine. He believes he has a history of enlarged prostate but is never had surgery for it. He says he has difficulty initiating a stream. No fever. Suprapubic discomfort. Prior similar symptoms: Yes Recent Illness/Hospitalization: No PFSH PFSH Home Medications ?Medication ?Instructions ?Recorded ?Last Taken ?Type sulfamethoxazole 800 1 tab PO BID 04/30/24 Unknown History mg-trimethoprim 160 mg tablet tamsulosin 0.4 mg capsule 0.4 mg PO QPM 04/30/24 Unknown History tamsulosin 0.4 mg capsule (Flomax) 0.4 mg PO DAILY 30 days #30 caps 04/30/24 Unknown Rx Allergy/AdvReac Type Severity Reaction Status Date / Time No Known Allergies Allergy Verified 04/30/24 09:10 Surgical History (Updated 04/30/24 @ 10:47 by Erica Tapia) S/P urethral surgery Social History Smoking Status: Never smoker ROS ROS ED ROS Narrative Dysuria. Difficulty urinating stream. Frequent urination. Constitutional Constitutional ED: Denies fever(s) Eyes Eyes: Denies blurry vision ENT ENT ED: Denies ear pain Cardiovascular Cardiovascular: Denies chest pain Respiratory/Chest Respiratory/Chest: Denies cough or dyspnea Gastrointestinal Gastrointestinal: Reports other Details: Feels full of her suprapubic region. ; Denies abdominal pain, constipation, diarrhea, nausea or vomiting Genitourinary Genitourinary ED: Reports dysuria and urinary frequency; Denies hematuria Musculoskeletal Musculoskeletal: Denies arthralgias Integumentary Denies abscess Neurologic Neurologic: Denies headache(s) Psychiatric Psychiatric: Denies anxiety or depression Endocrine Endocrinology: Denies polydipsia Hematologic/Lymphatic Hematologic/Lymphatic: Denies easy bleeding Allergic/Immunologic Allergic/Immunologic ED: Denies mouth swelling, tongue swelling or urticaria EXAM Physical Exam Narrative Exam Narrative: 69-year-old male. Vital signs stable afebrile. H EENT exam pupils round react light. Mytrex membranes. Neck nontender no JVD. Lungs clear to auscultation bilaterally. Heart regular rate and rhythm rate about 75 no murmur. Chest wall ribs nontender. Abdomen soft nondistended normal bowel sounds without peritoneal signs. Mild suprapubic tenderness only. No tenderness over the right upper or lower quadrant. No obstruction. No pulsatile mass. External exam unremarkable. Nontender. Circumcised male. No discharge or blood. No swelling. Moving all 4 extremities. Nontender no edema. Back nontender. Neurologically is awake and alert no focal motor deficits. Const Vital Signs: 04/30/24 09:10 04/30/24 11:46 Temperature 97.5 F L Temperature Source Temporal Pulse Rate 77 Respiratory Rate 16 Blood Pressure 161/81 H 125/100 H Blood Pressure Mean 107 108 Pulse Ox 98 Oxygen Delivery Method Room Air Positive well nourished and well developed; Negative for cachectic or contractures General Appearance ED: well developed and NAD; Negative for cachectic, contractures or pallor Nutritional Appearance: Negative for cachectic HEENT Reports moist mucous membranes normocephalic and atraumatic Eyes PERRL and EOMs intact bilaterally Neck no lymphadenopathy, supple and no JVD Resp normal respiratory effort and clear to auscultation bilaterally Cardio regular rate, regular rhythm, S1 normal heart sound, S2 normal heart sound and no murmurs GI non-distended and no masses; Negative for non-tender GI Narrative: Mild suprapubic tenderness. Palpation: soft and tender; Negative for guarding, hepatomegaly or splenomegaly no CVA tenderness Back/Spine no CVA tenderness General Back: Negative for CVA tenderness Cervical Spine: Negative for cervical spine tenderness Thoracic Spine / Upper Back: Negative for thoracic spinal tenderness Lumbar Spine / Lower Back: Negative for lumbar spinal tenderness Extremity normal to inspection General Extremety ED: Negative for edema, pulses abnormal or tenderness General Extremity: Negative for edema or pulses abnormal Neuro oriented x3, CN's II-XII intact bilaterally and moves all extremities Sensorium / Orientation: alert, oriented to person, oriented to place and oriented to time; Negative for orientation impaired, confused or lethargic Motor Exam: strength 5/5 throughout Psych mental status grossly normal Attitude: No agitated Mood & Affect: Negative for depressed, anxious or tearful Thought Process: normal thought process Skin General Skin Exam: Negative for jaundice or pallor Lesions: no lesions Rashes: no rashes Trauma: Negative for abrasion, laceration or puncture MDM MDM MDM Narrative Medical decision making narrative: C9-year-old male with trouble initiating stream and urinary frequency. Recently has been on Cipro now on Bactrim and Flomax. Looking at his urine sample does not look infected. There is no gross blood or clots. He describes urinary retention and thinks he has enlarged prostate. The bladder scan was only 62 but it may be inaccurate. Organ to check his kidney function. A UA and place a Sampson catheter to see if he does or does not have urinary retention. Repeat exam at 12:13 PM patient doing well. Sampson has 700 cc of clear yellow urine in it. No blood or clots. I believe the patient's issue is urinary retention most likely from enlarged prostate. He is almost out of Flomax. To be written for Flomax to take at night before he goes to bed. He can stop the antibiotic. We discharged to home with the Sampson catheter in place. He will follow-up outpatient with Dr. Harjinder Ferrer of urology. History & Record Review Discussion w/independent historian: Family Additional record(s) reviewed:: Prior inpatient record, Prior outpatient record, Prior ED visit and Prior labs Lab Data Attestation: I reviewed the patient's lab results. Lab results narrative: CBC shows a white count of 5. H&H 13 and 43. Platelets 159. Electrolytes show a gap of 4. BUN of 22 creatinine 1.89. He has a history of renal insufficiency. Glucose 100. Urinalysis shows no nitrites. No white cells and only rare bacteria I do not believe he has UTI. The initial bladder scan was only 62 however we placed a Sampson catheter he had 700 cc of clear yellow urine out. I do believe he has urinary retention. Labs: Laboratory Results - last 24 hr 04/30/24 04/30/24 09:32 09:50 WBC 5.7 RBC 4.74 Hgb 13.9 Hct 43.3 MCV 91.4 MCH 29.3 MCHC 32.1 RDW Std Deviation 44.7 H RDW Coeff of Dov 13.2 Plt Count 159 MPV 9.8 Immature Gran % (Auto) 0.200 Neut % (Auto) 60.0 Lymph % (Auto) 27.0 [place] % (Auto) 9.3 Eos % (Auto) 2.8 Baso % (Auto) 0.7 Absolute Neuts (auto) 3.4 Absolute Lymphs (auto) 1.54 Nucleated RBC % 0 Sodium 140 Potassium 4.4 Chloride 110 H Carbon Dioxide 26.0 Anion Gap 4 L BUN 22 H Creatinine 1.89 H Estim Creat Clear Calc 41.63 Est GFR (MDRD) Af Amer 46 L Est GFR (MDRD) Non-Af 38 L BUN/Creatinine Ratio 11.6 Glucose 100 Calcium 9.5 Urine Color Straw Urine Clarity Clear Urine pH 6.0 Ur Specific [place] 1.010 Urine Protein 30 H Urine Glucose (UA) Normal Urine Ketones Negative Urine Occult Blood Negative Urine Nitrite Negative Urine Bilirubin Negative Urine Urobilinogen Normal Ur Leukocyte Esterase Negative Urine RBC 0 SEEN Urine WBC 0 SEEN Ur Squamous Epith Cells 0-5 SEEN Urine Bacteria RARE Urine Mucus 0 SEEN Discharge Plan Triage Chief Complaint: Complaint ED Provider: Grady Merida Dx/Rx/DC Orders Clinical Impression: Acute urinary retention, Enlarged prostate Instructions: ED Urinary Retention, Male Prescriptions: New tamsulosin [Flomax] 0.4 mg capsule 0.4 mg PO DAILY 30 Days Qty: 30 0RF No Action sulfamethoxazole-trimethoprim 800-160 mg tablet 1 tab PO BID tamsulosin 0.4 mg capsule 0.4 mg PO QPM Primary Care Provider: Pilo Saba Referrals: Cecil Ferrer MD [Med Staff - Active Staff] - As soon as possible Pilo Saba DO [Primary Care Provider] - Activity Restrictions/Additional Instructions: Flomax taken daily before you go to bed. This will help decrease the size your prostate. You can stop the antibiotics you do not have a urinary tract infection. You have urinary retention difficulty urinating and emptying your bladder most likely secondary to enlarged prostate. The Sampson catheter has to stay in until you see the urologist. Call Dr. Harjinder Ferrer's office today to get an appointment set up for early next week. Empty of the Sampson catheter bag whenever three quarters full. Print Language: Vietnamese Disposition Disposition: Home, Self Care
[2024-04-30 09:57] LABS: Color, Urine Straw (Yellow); Glucose, Dipstick Normal (Normal); Ketone-Dipstick Negative (Negative); Leukocyte Esterase-Dipstick Negative /ul (Negative); Nitrite-Dipstick Negative (Negative); Occult Blood-Urine Negative /ul (Negative); Protein-Dipstick 30 mg/dl (Negative); Urine Bilirubin Dipstick Negative (Negative); Urine Clarity Clear (Clear); Urine Urobilinogen Normal (Normal)
[2024-04-30 09:58] LABS: Absolute Lymphocyte Count 1.54 X10^3/uL (0.83-4.51); Absolute Neutrophil Count 3.4 X10^3/uL (2.0-7.7); Basophil# 0.04 X10^3/uL; Basophil% 0.7 % (0-1); Eosinophil# 0.16 X10^3/uL; Eosinophils% 2.8 % (0-5); Hematocrit 43.3 % (40-54); Hemoglobin 13.9 g/dL (13.0-16.5); Lymphocyte # 1.54 X10^3/ul (0.83-4.51); Mean Corp Hgb Conc 32.1 g/dL (32-36); Mean Corpuscular Hgb 29.3 pg (27.0-32.0); Mean Corpuscular Volume 91.4 fL (80-94); Mean Platelet Vol. 9.8 fl (6.2-12.0); Monocyte# 0.53 X10^3/uL; Monocyte% 9.3 % (0-10); NRBC Flagged by Analyzer 0 % (0-5); Neutrophil # 3.43 X10^3/uL (2.7-7.7); Platelet Count 159 K/mm3 (150-450); RBC Distribution Width CV 13.2 % (11.6-14.6); RBC Distribution Width SD 44.7 fl (35.1-43.9); Red Blood Count 4.74 M/mm3 (4.6-6.2); White Blood Count 5.7 K/mm3 (4.4-11.0)
[2024-04-30 10:01] LABS: Bacteria RARE /hpf (None Seen); Squamous Epithelial Cells - UA 0-5 SEEN /hpf (0-5)
[2024-04-30 10:15] LABS: Anion Gap 4 (5-15); BUN 22 mg/dL (7-18); BUN/Creat Ratio 11.6 RATIO (10-20); Calcium,Total 9.5 mg/dL (8.5-10.1); Chloride 110 mmol/L (98-107); Creatinine, Serum 1.89 mg/dL (0.70-1.30); EST Glomerular Filtration Rate 38 mL/min (>60); Est Glom Filt Rate - Afr Amer 46 mL/min (>60); Estimated Creatinine Clearance 41.63 ml/min; Glucose 100 mg/dL (74-106); Potassium 4.4 mmol/L (3.5-5.1); Sodium Level 140 mmol/L (136-145)
[2024-04-30 11:46] VITALS: BP 125/100
[2024-04-30 12:26] VITALS: BP 125/100; PULSE 77; RESP 16; TEMP 36.4; O2SAT 98
== END 2024-04-30 12:40 | disposition home or self-care (01) ==
PROVIDERS: Emergency Provider Emergency Medicine; PCP Family Medicine; Visit Provider Emergency Medicine
DX: N40.1 Benign prostatic hyperplasia with lower urinary tract symptoms (principal); R33.8 Other retention of urine; R35.0 Frequency of micturition
CPT/HCPCS: 51702; 80048; 81001; 85025; 99283; A4216

== ENCOUNTER → 2024-05-04 | Outpatient (CLI) | payer MEDICARE, OTHER, SELFPAY ==
[2024-05-04 10:16] LABS: Absolute Lymphocyte Count 1.34 X10^3/uL (0.83-4.51); Absolute Neutrophil Count 3.9 X10^3/uL (2.0-7.7); Basophil# 0.04 X10^3/uL; Basophil% 0.7 % (0-1); Eosinophil# 0.15 X10^3/uL; Eosinophils% 2.5 % (0-5); Hematocrit 45.2 % (40-54); Hemoglobin 14.2 g/dL (13.0-16.5); Lymphocyte # 1.34 X10^3/ul (0.83-4.51); Lymphocyte % 22.1 % (19-41); Mean Corp Hgb Conc 31.4 g/dL (32-36); Mean Corpuscular Hgb 28.9 pg (27.0-32.0); Mean Corpuscular Volume 92.1 fL (80-94); Monocyte# 0.57 X10^3/uL; Monocyte% 9.4 % (0-10); NRBC Flagged by Analyzer 0 % (0-5); Neutrophil # 3.93 X10^3/uL (2.7-7.7); Platelet Count 185 K/mm3 (150-450); RBC Distribution Width CV 13.2 % (11.6-14.6); RBC Distribution Width SD 44.4 fl (35.1-43.9); Red Blood Count 4.91 M/mm3 (4.6-6.2); White Blood Count 6.1 K/mm3 (4.4-11.0)
[2024-05-04 11:38] LABS: ALB/GLOB Ratio 1.1 RATIO (0.9-2.4); AST(SGOT) 22 U/L (15-37); Alanine Aminotransfer ALT/SGPT 33 U/L (16-61); Albumin, Serum 3.9 g/dL (3.2-5.0); Alkaline Phosphatase 85 U/L (45-117); Anion Gap 6 (5-15); BUN 21 mg/dL (7-18); Calcium,Total 9.2 mg/dL (8.5-10.1); Chloride 106 mmol/L (98-107); Cholesterol 180 mg/dL (200); Creatinine, Serum 1.61 mg/dL (0.70-1.30); EST Glomerular Filtration Rate 46 mL/min (>60); Est Glom Filt Rate - Afr Amer 55 mL/min (>60); Globulin 3.7 g/dL (2.2-4.2); Glucose 96 mg/dL (74-106); High Density Lipoprotein 45 mg/dL; Potassium 4.3 mmol/L (3.5-5.1); Protein, Total 7.6 g/dL (6.4-8.2); Sodium Level 138 mmol/L (136-145); Triglycerides 151 mg/dL; Very Low Density Lipoprotein 30 mg/dL (5-40)
== END | disposition home or self-care (01) ==
LOC: LAB.FUTURE 09:16 → LAB 09:18
PROVIDERS: PCP Family Medicine; Referring Provider Family Medicine; Visit Provider Family Medicine
DX: Z12.5 Encounter for screening for malignant neoplasm of prostate (principal); N18.31 Chronic kidney disease, stage 3a; R53.83 Other fatigue; E78.5 Hyperlipidemia, unspecified
CPT/HCPCS: 36415; 80053; 80061; 84153; 84403; 85025; G0103

== ENCOUNTER → 2024-07-02 | Outpatient (CLI) | payer MEDICARE, OTHER, SELFPAY ==
[2024-07-02 12:20] LABS: Albumin, Serum 4.4 g/dL (3.4-4.8); Anion Gap 11 (5-15); BUN 21 mg/dL (4-19); BUN/Creat Ratio 13.4 RATIO (10-20); Calcium,Total 9.5 mg/dL (7.6-11.0); Carbon Dioxide 21.8 mmol/L (21.0-32.0); Chloride 106 mmol/L (98-108); Creatinine, Serum 1.53 mg/dL (0.70-1.20); EST Glomerular Filtration Rate 50 (>60); Glucose 71 mg/dL (70-99); Phosphorus 3.1 mg/dL (2.7-4.5); Potassium 4.4 mmol/L (3.3-5.1); Sodium Level 139 mmol/L (133-145)
== END | disposition home or self-care (01) ==
LOC: LAB 10:58
PROVIDERS: PCP Family Medicine; Referring Provider Internal Medicine Nephrology; Visit Provider Internal Medicine Nephrology
DX: N18.31 Chronic kidney disease, stage 3a (principal)
CPT/HCPCS: 36415; 80069

== ENCOUNTER → 2024-12-24 | Outpatient (CLI) | payer MEDICARE, OTHER, SELFPAY ==
[2024-12-24 16:00] LABS: BUN 27 mg/dL (4-19); BUN/Creat Ratio 17.2 RATIO (10-20); Calcium,Total 8.6 mg/dL (7.6-11.0); Chloride 105 mmol/L (98-108); Glucose 50 mg/dL (70-99); Potassium 5.0 mmol/L (3.3-5.1)
[2024-12-24 16:03] LABS: Anion Gap 13 (5-15); Carbon Dioxide 21.8 mmol/L (21.0-32.0)
== END | disposition home or self-care (01) ==
LOC: MTLAB 13:28
PROVIDERS: PCP Family Medicine; Referring Provider Family Medicine; Visit Provider Family Medicine
DX: N18.31 Chronic kidney disease, stage 3a (principal)
CPT/HCPCS: 36415; 80048